=== PATIENT | male | born 1990 | race Two or more races ===

== ENCOUNTER 2020-04-23 08:33 | Emergency (ER) | payer SELFPAY ==
[~2020-04-23] VITALS: Ht 172.7 cm; Wt 90.7 kg
[2020-04-23] MEDS ORDERED: traMADol HCL 50 MG TAB PO ONE (09:15)
[2020-04-23 09:52] VITALS: BP 151/102
== END 2020-04-23 09:44 | disposition home or self-care (01) ==
LOC: ER 08:33
DX: S86.012A Strain of left Achilles tendon, initial encounter (principal); W01.0XXA Fall on same level from slipping, tripping and stumbling without subsequent striking against object, initial encounter; Y93.67 Activity, basketball; Y92.39 Other specified sports and athletic area as the place of occurrence of the external cause; Y99.8 Other external cause status
CPT/HCPCS: 29515; 73610

== ENCOUNTER 2022-04-03 06:54 | Emergency (ER) | payer MEDICAID ==
[~2022-04-03] VITALS: Ht 172.7 cm; Wt 90.7 kg
[2022-04-03] MEDS ORDERED: AMOX-277 PO (07:30)
[2022-04-03] MEDS ORDERED: IBUP800T27 PO (07:30)
[2022-04-03 07:46] VITALS: BP 133/88
== END 2022-04-03 07:43 | disposition home or self-care (01) ==
LOC: ER 06:54
DX: H66.92 Otitis media, unspecified, left ear (principal); Z79.1 Long term (current) use of non-steroidal anti-inflammatories (NSAID); Z79.2 Long term (current) use of antibiotics

== ENCOUNTER 2022-04-16 21:53 | Emergency (ER) | payer MEDICAID ==
[~2022-04-16] VITALS: Ht 172.7 cm; Wt 90.7 kg
[~2022-04-16 21:53] MED LIST: AMOX-277 PO; IBUP800T27 PO
[2022-04-16] MEDS ORDERED: COROSUS EACH EAR (23:41)
[2022-04-16 23:46] VITALS: BP 145/90
== END 2022-04-17 00:11 | disposition home or self-care (01) ==
LOC: ER 21:55
DX: H60.92 Unspecified otitis externa, left ear (principal); Z79.1 Long term (current) use of non-steroidal anti-inflammatories (NSAID); Z79.2 Long term (current) use of antibiotics